=== PATIENT | female | born 1945 | race Caucasian/White ===

== ENCOUNTER 2017-08-21 14:00 | Emergency (ER) | payer BC ==
[~2017-08-21] VITALS: Ht 162.6 cm; Wt 74.8 kg
--- NOTE | 2017-08-21 14:10 | NUR ---
A/OX4, C/O MID BACK PAIN X 3 DAYS, RADIATING DOWN L LEG. NO TRAUMA. NAD VSS RR EVEN AND UNLABORED. PENDING ER MD QUINTANILLA
[2017-08-21] MEDS ORDERED: ONDANSETRON HCL/PF - ER 4 MG/2 ML VIAL IV ONE (14:30)
[2017-08-21] MEDS ORDERED: HYDROMORPHONE 1 MG/1 ML DISP.SYRIN IV ONE ×2 (14:30→15:30)
[2017-08-21] MEDS ORDERED: ONDANSETRON HCL/PF 4 MG/2 ML VIAL ONE (14:31)
[2017-08-21] MEDS ORDERED: HYDROMORPHONE INJ 2 MG/ML DISP.SYRIN ONE ×2 (14:31→15:32)
--- NOTE | 2017-08-21 15:57 | NUR ---
IV removed. Catheter intact and site benign. Pressure and 4x4 applied to site. No bleeding noted.Patient discharged to home in stable condition. Written and verbal after care instructions given. Instructed not to drive. Patient verbalizes understanding of instruction.
[2017-08-21 15:58] VITALS: BP 123/55
== END 2017-08-21 15:59 | disposition home or self-care (01) ==
LOC: ER 14:14
DX: M54.5 Low back pain (principal); I10 Essential (primary) hypertension; E11.9 Type 2 diabetes mellitus without complications; M32.9 Systemic lupus erythematosus, unspecified; Z98.890 Other specified postprocedural states
CPT/HCPCS: 96374; 96375; 96376; 99284; A4606; J1170 ×2; J2405; Z7610